=== PATIENT | male | born 1945 | race American Indian/Alaskan Native ===

== ENCOUNTER 2016-11-01 13:31 | Outpatient (CLI) | payer BC, MEDICARE | END 2016-11-01 13:32 | disposition home or self-care (01) | LOC: LAB 13:31 | PROVIDERS: ATTEND Specialist | DX: R56.9 Unspecified convulsions (principal) | CPT/HCPCS: 36415; 80177 ==

== ENCOUNTER 2017-11-29 15:32 | Emergency (ER) | payer MEDICARE, BC ==
--- NOTE | 2017-11-29 17:49 | Emergency Department Report ---
ED Seizure HPI - General Chief Complaint: Seizure Stated Complaint: SYNCOPE Time Seen by Provider: 11/29/17 17:36 Source: patient Mode of arrival: Stretcher Limitations: No Limitations - History of Present Illness Initial Comments: Patient is 72 years old male brought to the ER via EMS from his GI doctor office after patient had 2 episode of seizure. The patient has history of seizure, carotid artery disease status post CABG, CVA with left leg weakness. Patient is completely back to normal after his seizure. Patient denied any recent fever, head injury, cough chest pain, shortness of breath, nausea or vomiting. MD Complaint: seizure -: Sudden, This afternoon Description of Episode: loss of consciousness -: minutes(s) Witnessed:: Yes Trauma: No Seizure History: known seizure disorder Place: other ( office) Possible Precipitating Event: none Associated Symptoms: denies other symptoms. denies: chest pain, confusion, cough, diaphoresis, fever/chills, loss of appetite, malaise, rash, shortness of breath, syncope, weakness, tongue injury, shoulder dislocation - Related Data Home Medications Medication Instructions Recorded Confirmed Last Taken Atenolol [Tenormin] 12.5 mg PO QHS 12/08/13 12/08/13 12/07/13 Previous Rx's Medication Instructions Recorded Last Taken Type Simvastatin [Zocor TAB] 20 mg PO QHS #30 tablet 12/09/13 Unknown Rx Allergies Allergy/AdvReac Type Severity Reaction Status Date / Time Penicillins Allergy Hives Verified 12/08/13 16:55 ED Review of Systems ROS: Stated complaint: SYNCOPE Other details as noted in HPI Comment: All other systems reviewed and negative Constitutional: denies: chills, fever Respiratory: denies: cough, shortness of breath, SOB with exertion, SOB at rest Cardiovascular: denies: chest pain, palpitations, dyspnea on exertion, orthopnea , syncope, paroxysmal nocturnal dyspnea Gastrointestinal: denies: abdominal pain, nausea, vomiting, diarrhea, constipation, hematemesis Genitourinary: denies: urgency, dysuria, frequency, hematuria, discharge Neurological: denies: headache, weakness, numbness, paresthesias ED Past Medical Hx - Past Medical History Previous Medical History?: Yes Hx Hypertension: Yes Hx CVA: Yes Hx Liver Disease: Yes (Hepatitis B) Hx Seizures: Yes Hx COPD: Yes Additional medical history: aortic root replacement - Surgical History Past Surgical History?: Yes Hx Open Heart Surgery: Yes Additional Surgical History: aortic root replacement, brain surgery, shunt - Social History Smoking Status: Former Smoker Substance Use Type: None - Medications Home Medications: Home Medications Medication Instructions Recorded Confirmed Last Taken Type Atenolol [Tenormin] 12.5 mg PO QHS 12/08/13 12/08/13 12/07/13 History Simvastatin [Zocor TAB] 20 mg PO QHS #30 tablet 12/09/13 Unknown Rx ED Physical Exam - General Limitations: No Limitations General appearance: alert, in no apparent distress - Head Head exam: Present: atraumatic, normocephalic, normal inspection - Eye Eye exam: Present: normal appearance, PERRL - ENT ENT exam: Present: normal exam, normal orophraynx, mucous membranes moist - Neck Neck exam: Present: normal inspection, full ROM. Absent: tenderness, meningismus - Respiratory Respiratory exam: Present: normal lung sounds bilaterally. Absent: respiratory distress, wheezes, rales, rhonchi, accessory muscle use, decreased breath sounds , prolonged expiratory - Cardiovascular Cardiovascular Exam: Present: regular rate, normal rhythm, normal heart sounds - GI/Abdominal GI/Abdominal exam: Present: soft, normal bowel sounds. Absent: distended, tenderness, guarding, rebound, rigid, organomegaly, mass, bruit, pulsatile mass , hernia - Extremities Exam Extremities exam: Present: normal inspection, full ROM, normal capillary refill - Back Exam Back exam: Present: normal inspection, full ROM, CVA tenderness (L) - Neurological Exam Neurological exam: Present: alert, oriented X3, CN II-XII intact, normal gait - Skin Skin exam: Present: warm, intact, normal color ED Course Vital Signs 11/29/17 11/29/17 11/29/17 16:00 17:30 19:00 Temperature 97.6 F Pulse Rate 60 58 L 55 L Respiratory 16 13 13 Rate Blood Pressure 132/68 118/67 118/67 O2 Sat by Pulse 98 97 98 Oximetry 11/29/17 11/29/17 11/29/17 19:30 20:00 20:30 Temperature Pulse Rate 56 L 58 L 60 Respiratory 14 15 16 Rate Blood Pressure 105/72 112/73 112/73 O2 Sat by Pulse 99 97 99 Oximetry - Reevaluation(s) Reevaluation #1: 04/11/18 20:40 Patient observed in the ER. No evidence of seizure activity. Patient is in no acute distress he is alert oriented 3. I advised patient to follow up with his neurologist in the next 2-3 days. ED Medical Decision Making - Lab Data Result diagrams: 11/29/17 17:52 11/29/17 18:31 Critical care attestation.: If time is entered above; I have spent that time in minutes in the direct care of this critically ill patient, excluding procedure time. ED Disposition Clinical Impression: Seizure Disposition: [id number] TO HOME OR SELFCARE Is pt being admited?: No Condition: Stable Instructions: Recurrent Seizures Adult (ED) Additional Instructions: Follow-up with your neurologist in the next 2-3 days Referrals: VU SCOTT MD [Primary Care Provider] - 3-5 Days
[2017-11-29] MEDS ORDERED: KEPPRA 500 MG in D5W 100 ML IV ONE (18:00)
[2017-11-29 18:11] LABS: Basophils % (Auto) 0.4 % (0.0-1.8); Eosinophils # (Auto) 0.1 K/mm3 (0.0-0.4); Eosinophils % (Auto) 1.7 % (0.0-4.3); Hematocrit 40.3 % (35.5-45.6); Hemoglobin 13.3 gm/dl (11.8-15.2); Lymphocytes # (Auto) 2.2 K/mm3 (1.2-5.4); Lymphocytes % (Auto) 24.5 % (13.4-35.0); Mean Corpuscular HGB Conc 33 % (32-34); Mean Corpuscular Hemoglobin 29 pg (28-32); Mean Corpuscular Volume 88 fl (84-94); Monocytes # (Auto) 1.2 K/mm3 (0.0-0.8); Monocytes % (Auto) 12.9 % (0.0-7.3); Platelet Count 147 K/mm3 (140-440); Red Blood Count 4.57 M/mm3 (3.65-5.03); Red Cell Distribution Width 15.8 % (13.2-15.2)
[2017-11-29 18:57] LABS: Alanine Aminotransferase 27 units/L (7-56); Albumin 3.9 g/dL (3.9-5); BUN/Creatinine Ratio 13; Blood Urea Nitrogen 12 mg/dL (9-20); Calcium 9.3 mg/dL (8.4-10.2); Hemolysis Index 52
--- NOTE | 2017-11-29 19:12 | Cat Scan Report ---
FINAL REPORT EXAM: CT HEAD/BRAIN WO CON HISTORY: Seizure TECHNIQUE: Standard unenhanced CT of the head at 5.0 millimeter axial increments. PRIORS: None. FINDINGS: The ventricular system is normal in size and configuration. There is no evidence for parenchymal volume loss. There is a ventriculostomy catheter present in the right posterior parietal region terminating at midline in the right lateral ventricle. Low-density in the periventricular white matter is present bilaterally. There is a remote area of encephalomalacia in the posterior aspect of the right frontal lobe. A remote lacunar infarct in the right caudate nucleus is seen. There is no evidence for mass lesion, mass effect, midline shift, acute intracranial hemorrhage, or acute ischemia/ infarction. No evidence for acute skull fracture is seen. No abnormality in the overlying scalp soft tissues is seen. Visualized paranasal sinuses demonstrates mucosal thickening in the ethmoid and sphenoid sinuses. IMPRESSION: No acute intracranial process noted. Numerous chronic findings identified.
[2017-11-29 21:29] VITALS: BP 112/73
== END 2017-11-29 20:58 | disposition home or self-care (01) ==
LOC: ED 15:32
DX: G40.909 Epilepsy, unspecified, not intractable, without status epilepticus (principal); I10 Essential (primary) hypertension; J44.9 Chronic obstructive pulmonary disease, unspecified; Z86.73 Personal history of transient ischemic attack (TIA), and cerebral infarction without residual deficits; Z87.891 Personal history of nicotine dependence; Z88.0 Allergy status to penicillin
CPT/HCPCS: 36415; 70450; 80053; 85025; 93005; 93010; 96365; 96366; 99285; J1953

== ENCOUNTER 2018-02-16 07:50 | Outpatient (CLI) | payer MEDICARE, BC ==
--- NOTE | 2018-02-16 12:00 | Cat Scan Report ---
FINAL REPORT EXAM: CT ANGIO CHEST HISTORY: ASCENDING AORTIC ANEURYSM TECHNIQUE: CT examination of the chest with IV contrast CT angiographic 2D and thick slab 3D image post-processing PRIORS: None. FINDINGS: Sternotomy cerclage wires are present. Thin gauge nonspecific tubing extending from the lower neck and projected over the right chest may be a shunt. Normal cardiac size without pericardial effusion. Normal-appearing esophagus. No hilar mass or mediastinal adenopathy. The visualized pulmonary arteries are diffusely patent bilaterally. There is no filling defect to suggest PE. Prominent caliber ascending thoracic aorta without definite aneurysm by size criteria. Maximum diameter of the ascending aorta at the level of the main pulmonary arteries 4.1 cm, upper limits of normal 4.3 cm at age 72. The no evidence of aortic dissection. Descending thoracic aortic diameter 3.4 cm. Small calcified gallstones in the dependent gallbladder lumen. No visible other biliary pathology. Degenerative change in the regional skeleton. No acute fracture. Thick linear scar versus atelectasis in both lower lobes. No pneumothorax or pleural effusion. No lung mass or pulmonary nodule. IMPRESSION: Fusiform prominence of the ascending thoracic aorta with diameter at upper limits of normal, 4.1 cm. Descending thoracic aortic diameter 3.4 cm. Cholelithiasis Thick linear scar in both lower lobes No CT evidence of PE
== END 2018-02-16 07:51 | disposition home or self-care (01) ==
LOC: CT 07:50
PROVIDERS: ATTEND Internal Medicine Cardiovascular Disease
DX: I71.2 Thoracic aortic aneurysm, without rupture (principal); J98.4 Other disorders of lung; K80.20 Calculus of gallbladder without cholecystitis without obstruction; I10 Essential (primary) hypertension; J44.9 Chronic obstructive pulmonary disease, unspecified; J98.11 Atelectasis; Z98.890 Other specified postprocedural states; Z82.49 Family history of ischemic heart disease and other diseases of the circulatory system; Z83.3 Family history of diabetes mellitus; Z87.891 Personal history of nicotine dependence
CPT/HCPCS: 36415; 71275; 82565; Q9967